=== PATIENT | male | born 1980 | race Caucasian/White ===

== ENCOUNTER 2018-08-04 12:28 | Emergency (ER) | payer SELFPAY ==
[~2018-08-04] VITALS: Ht 167.6 cm; Wt 72.6 kg
[2018-08-04 12:43] VITALS: Ht 167.6 cm; Wt 72.6 kg
[2018-08-04 14:28] VITALS: BP 134/76
== END 2018-08-04 14:28 | disposition home or self-care (01) ==
LOC: ED 12:28
DX: S81.812A Laceration without foreign body, left lower leg, initial encounter (principal); W26.8XXA Contact with other sharp object(s), not elsewhere classified, initial encounter; Y93.39 Activity, other involving climbing, rappelling and jumping off; Y92.89 Other specified places as the place of occurrence of the external cause; Y99.8 Other external cause status
CPT/HCPCS: 90715; J2001